=== PATIENT | male | born 1965 | race Caucasian/White ===

== ENCOUNTER 2023-05-21 11:47 | Day surgery (SDC) | payer BC, MEDICAID, SELFPAY ==
[2023-05-21] VITALS (13 sets, daily range): BP systolic 132–163; BP diastolic 79–104; PULSE 102–115; RESP 16–20; TEMP 36.6–36.9; O2SAT 95–99; BMI 39.3
--- NOTE | 2023-05-21 | XR_ITS ---
WS: [id number] Exam: XR elbow RT 2V [id number] Date/Time of Exam: 05/21/2023 12:00 AM Reason For Exam: SUJATA PICS AP and lateral C-arm images of the RIGHT elbow are submitted. Comparison made to prior study 4. Previously noted dislocation appears to have been satisfactorily reduced. No obvious fractures identi fied on the intraoperative images however detail is limited.
--- NOTE | 2023-05-21 13:34 | XR_ITS ---
WS: [id number] Right elbow, 3 views, 05/21/2023 Clinical Data: trauma; significant swelling Comparison: None. Findings: There is a posterior dislocation of the olecranon and radial head from the distal right humerus. Ther e is soft tissue swelling surrounding the dislocation. No fractures are seen. Impression: Posterior dislocation of the olecranon and radial head from the distal right humerus.
--- NOTE | 2023-05-21 13:34 | W.ED.UPPEXIN ---
Documented by User: REBECCA Aviles 05/21/23 15:58 HPI - Extremity Injury (Upper) General: Chief Complaint: Extremity Injury, Upper Stated Complaint: right arm pain Time Seen by Provider: 05/21/23 12:14 Source: patient Mode of arrival: ambulatory Limitations: no limitations History of Present Illness: Patient is a nice 58-year-old male who presents to ED today with complaint of an injury to his right arm that he sustained 2 days ago after falling from a 7 foot ladder. Patient states he did notice pain right away but states it has significantly worsened over the past 48 hours and he has noticed significant swelling and ecchymosis to the right elbow and forearm. He denies any other injury sustained during the fall. MD complaint: injury to: right, elbow and forearm Onset (ago): day(s) Other Extremity Injury: Right: elbow Other injuries: none Place: home Severity: severe Relieving factors: immobilization Exacerbating factors: movement of extremity Context: fall and direct blow Associated symptoms: Reports no associated symptoms Review of Systems Card: Denies: chest pain Resp: Denies: dyspnea Musc: Reports: extremity pain, extremity swelling (R forearm), joint pain (R elbow) and joint swelling (R elbow) Neuro: Denies: numbness in extremities or sensory changes Physical Exam Const: COMMON NORMALS: patient oriented x3, no limitations, alert and well nourished GENERAL APPEARANCE: cooperative NUTRITIONAL APPEARANCE: obese ORIENTATION/CONSCIOUSNESS: Yes awake, Yes oriented to person, Yes oriented to place and Yes oriented to time Extremity: COMMON NORMALS: capillary refill normal GENERAL: Yes normal exam except as noted RIGHT UPPER EXTREMITY: Yes elbow joint (significant edema throughout elbow joint into forearm) Right elbow: Yes ROM (significantly limited secondary to pain/swelling), Yes neurovascular exam (normal) and Yes other (ecchymosis R volar elbow), Yes lower arm Right lower arm: Yes neurovascular exam (normal) and Yes hand & digits (sensation normal, radial pulse intact, normal flex/ext of wrist) Neuro: COMMON NORMALS: patient oriented x3, no focal motor deficits and no sensory deficits noted SENSORIUM/ORIENTATION: Yes alert, Yes oriented to person, Yes oriented to place and Yes oriented to time Course Consultations: Consultation #1: Dr. Hernandez-will come to ED and evaluate patient and attempt reduction under conscious sedation Vital Signs: Vital signs: Vital Signs Temperature 98.4 F 05/21/23 11:49 Pulse Rate 110 H 05/21/23 15:59 Respiratory Rate 18 05/21/23 15:59 Blood Pressure 163/89 05/21/23 11:49 Pulse Oximetry 97 05/21/23 15:59 Oxygen Delivery Me thod Room Air 05/21/23 15:59 MDM - Extremity Injury (Upper) Medical Decision Making Patient is a 58-year-old male here with a right elbow injury that he sustained 2 days ago after falling off of a ladder. On x-ray he has a posterior dislocation. Dr. Redmond and I attempted reduction here but were unsuccessful. Please see Dr. Redmond's note for conscious sedation and procedure. We contacted armor reconnaissance specialist, Dr. Hernandez who graciously came to the emergency department to attempt reduction. After repeat attempt by Dr. Hernandez decision was made to take patient to the OR. Medical Records I reviewed the patient's medical records. Lab Data Radiology Impressions Elbow X-Ray 05/21/23 15:56 IMPRESSION: Persistent dislocation post reduction attempt. All radiology interpretation(s) finalized by discharge Discharge Plan Discharge Patient Disposition: Admitted As Inpatient Clinical Impression: Dislocation of right elbow Qualifiers: Encounter type: initial encounter Qualified Code(s): S53.104A - Unspecified dislocation of right ulnohumeral joint, initial encounter Condition: Stable Coding Level of Care Code ED Systems Engineer for Chg Fwd Documented by User: Cipriano Redmond DO 05/21/23 16:43 HPI - Extremity Injury (Upper) General: Chief Complaint: Extremity Injury, Upper Stated Complaint: right arm pain Time Seen by Provider: 05/21/23 12:14 Procedures Orthopedic Joint Reduction Joint #1: Time Out Performed: Yes Side: right Joint Reduction Location: elbow Analgesia: procedural sedation Technique used: traction/counter-traction Post-reduction neuro exam: no change Post-reduction vascular: no change Post Reduction X-Ray Obtained: No Patient Tolerated Procedure: well Additional Comments: Initial attempt made by myself with etomidate was unable to reduce adequately. Bleeding largely due to the amount of swelling. Dr. Hernandez was contacted I assisted Dr. Hernandez providing conscious sedation with propofol additionally assisted him manipulating the joint. On the second attempt Dr. Hernandez was able to get it partially reduced but the AP film still shows lateral displacement is not fully appropriately reduced he is planning to take patient to the OR for reduction Procedural Sedation Indication: fracture/dislocation reduction ASA Class: I Preparation: environmental monitoring specialist applied, pulse oximeter, supplemental O2 applied, suction/airway equipment at bedside and IV secured IV Propofol dose (mg): 150 IV Etomidate dose (mg): 10 Patient Tolerated Procedure: well Complications: hypoventilation Interventions: oxygen applied, airway repositioned and assist by BVM Additional Comments: Initial attempt at reduction patient was given 20 mg of etomidate tolerated well recovered but we are not able to get adequate enough relaxation at the joint to reduce. Dr. Hernandez was contacted I provided conscious sedation with 3 50 mg pushes of propofol to achieve greater sedation we are able to get it partially reduced but was still some lateral displacement. Did require brief episodes of [id number] assisted ventilations. Patient recovered well with no further support and no complications. Course Vital Signs: Vital signs: Vital Signs Temperature 98.4 F 05/21/23 11:49 Pulse Rate 110 H 05/21/23 15:59 Respiratory Rate 18 05/21/23 15:59 Blood Pressure 163/89 05/21/23 11:49 Pulse Oximetry 97 05/21/23 15:59 Oxygen Delivery Me thod Room Air 05/21/23 15:59 MDM - Extremity Injury (Upper) Medical Decision Making Patient is a 58-year-old male here with a right elbow injury that he sustained 2 days ago after falling off of a ladder. On x-ray he has a posterior dislocation. Dr. Redmond and I attempted reduction here but were unsuccessful. Please see Dr. Redmond's note for conscious sedation and procedure. We contacted armor reconnaissance specialist, Dr. Hernandez who graciously came to the emergency department to attempt reduction. After repeat attempt by Dr. Hernandez decision was made to take patient to the OR. ' ' Chart reviewed and patient discussed with midlevel. Agree with assessment and plan. Lab Data Radiology Impressions Elbow X-Ray 05/21/23 15:56 IMPRESSION: Persistent dislocation post reduction attempt. Discharge Plan Discharge Patient Disposition: Admitted As Inpatient Clinical Impression: Dislocation of right elbow Qualifiers: Encounter type: initial encounter Qualified Code(s): S53.104A - Unspecified dislocation of right ulnohumeral joint, initial encounter Condition: Stable Coding Level of Care Code ED Systems Engineer for Donal Montoya
[2023-05-21] MEDS: etomidate 2 mg/mL INJ SDV 10 mL 10 MG IVP (14:41)
[2023-05-21] MEDS: ondansetron 2 mg/ML SDV 2 mL 4 MG IVP (14:44)
[2023-05-21] MEDS: morphine 4 mg/mL SDV 1 mL IVP ×2 (14:44→15:21)
[2023-05-21] MEDS: propofol 10 mg/mL SDV 20 mL 50 MG IVP (15:23)
--- NOTE | 2023-05-21 15:56 | XRR_ITS ---
PROCEDURE INFORMATION: Exam: XR Right Elbow Exam date and time: 05/21/2023 3:38 PM Age: 58 years old Clinical indication: Screening exam; Post reduction attempt TECHNIQUE: Imaging protocol: Radiologic exam of the right elbow. Views: 1 or 2 views. COMPARISON: CR XR elbow RT min 3V* [id number] 05/21/2023 1:40 PM FINDINGS: Bones/joints: Persistent dislocation post reduction attempt. Soft tissues: Soft tissue swelling again noted around the elbow. XR/XR elbow RT 2V [id number] IMPRESSION: Persistent dislocation post reduction attempt.
--- NOTE | 2023-05-21 16:04 | P.CONIM_ITS ---
Providers/Reason For Consult Consulting Physician/Specialty*: Boo Hernandez DO/orthopedic surgery Reason for Consult*: Right elbow posterior dislocation Requesting Physician: REBECCA Aviles Dr. Primary Care Provider: GWENDOLYN Samuel History of Present Illness History of Present Illness Mckinley Espinal is a 58 year old male who presents to ED today with complaint of an injury to his right arm that he sustained 2 days ago after falling from a 7 foot ladder. Patient states he did notice pain right away but states it has significantly worsened over the past 48 hours and he has noticed significant swelling and ecchymosis to the right elbow and forearm. He denies any other injury sustained during the fall. x-rays in the ED found to have a posterior dislocation appears to be simple in nature no fractures appreciated. Underwent attempted closed reduction by emergency department unsuccessful orthopedics was consulted for evaluation and treatment recommendations. Patient neurovascularly intact has sensation intact to light touch distally denies any numbness or tingling is able to wiggle fingers distal pulses are palpable Review of Systems General: Reports: 10 or more systems reviewed and unremarkable except in HPI and below Medications/Allergies Home Medications Medication Instructions Recorded Confirmed Last Taken Type ibuprofen 200 mg tablet 600 mg PO Q6H PRN Pain 05/21/23 05/21/23 05/21/23 History lisinopril 10 mg tablet 10 mg PO DAILY 05/21/23 05/21/23 05/21/23 History metoprolol tartrate 25 mg tablet 25 mg PO BID 05/21/23 05/21/23 05/21/23 History Allergies Allergy/AdvReac Type Severity Reaction Status Date / Time No Known Allergies Allergy Verified 05/21/23 11:56 Vitals/I&O/Wt Last Vital Signs Temp 98.4 F 05/21/23 11:49 Pulse 115 H 05/21/23 11:49 Resp 17 05/21/23 15:21 BP 163/89 05/21/23 11:49 Pulse Ox 97 05/21/23 15:21 O2 Del Method Room Air 05/21/23 11:49 Weight last 48 hrs Weight 290 lb Physical Exam Narrative: Orthopedic examination right upper extremity: Examination of right upper extremity demonstrates patient has deformity of the right elbow consistent with a posterior dislocation. Swelling and ecchymosis noted about the right elbow. He is able to perform cardinal hand movements of AIN/PIN/radial/ulnar/median nerves intact. Sensations intact light touch of the radial/ulnar/median nerve distribution distal pulses are palpable hand warm well-perfused brisk capillary refill less than 2 seconds. Unable to assess range of motion secondary to pain and dislocation Data Xray Ortho: My impression: X-rays of the elbow reviewed personally interpreted myself demonstrating posterior dislocation of the right elbow. No apparent fractures are noted Radiologist's impression: Impression: Posterior dislocation of the olecranon and radial head from the distal right humerus. A&P Assessment and plan (1) Dislocation of right elbow: Qualifiers: Encounter type: initial encounter Qualified Code(s): S53.104A - U nspecified dislocation of right ulnohumeral joint, initial encounter Plan Attempted closed reduction by the emergency department X-rays reviewed Procedure in detail attempted additional closed reduction by myself with orthopedics and unsuccessful as patient unable to relax as well as unable to get deep enough of sleep as well as an concentric reduction. At this point in time would recommend taking patient to the OR emergently for right elbow closed reduction and long-arm splint application. Patient understands agrees with current plan. Questions answered Procedure in detail: (Attempted closed reduction of right elbow) Patient had hematoma block performed of 10 cc of 1% lidocaine at the anconeus soft spot with appropriate aspiration of hematoma as well as injection this will be for pain control as well as hopefully to distend the joint capsule. Patient then underwent conscious sedation emergency department per the emergency department team received max amount of sedation still has significant guarding secondary to pain attempt was made and had a small palpable clunk but this had residual recurrent dislocation. Patient was then allowed to wake up from conscious sedation. Plan will be to take to the OR emergently for full anesthetic with hopefully paralytics to relax his muscles as this has been out for over 2 days in hopes to obtain a concentric reduction and placed in a long- arm splint. At this point in time he understands and agrees with current plan. All questions answered. He does understand I am not a elbow specialist and at this point in time I will only attempt a closed reduction which I do feel should be successful once his muscles are appropriately relaxed feel this is much more challenging given that he is been out for over 2 days. If this is unsuccessful I would forego creating an open procedure and attempt to reduce this as this should be performed by a elbow specialist for his definitive treatment. He understands and agrees with current plan. All questions answered. Coding Level of Care Code Acute Code for Chg Fwd Diagnoses Dislocation of right elbow S53.104A Encounter type: initial encounter Time Spent (min) 50
--- NOTE | 2023-05-21 16:13 | W.PM.OPSUD ---
Surgery/Procedure H&P Update DATE OF PROCEDURE: May 21, 2023 DATE H&P PERFORMED: 05/21/23 H&P UPDATE INFORMATION: I have reviewed H&P completed within last 30 days, I have examined patient prior to procedure and No changes to prior documentation PREOP DIAGNOSIS: Right elbow dislocation PRIMARY INDICATION FOR PROCEDURE: Right elbow dislocation PLANNED PROCEDURE: Operation Date: 05/21/23 16:30 Proposed Procedures p Closed Reduction Upper Extremity(Right) - Boo Hernandez DO
[2023-05-21] MEDS: propofol 10 mg/mL SDV 20 mL 100 MG IVP (16:35)
--- NOTE | 2023-05-21 16:42 | ANES.PREANE2 ---
Pre-Anesthetic Assessment Height/Weight: Height 1.83 m Weight 131.542 kg Temp Pulse Resp BP Pulse Ox O2 Del Method 98.4 F 110 H 18 163/89 97 Room Air 05/21/23 11:49 05/21/23 15:59 05/21/23 15:59 05/21/23 11:49 05/21/23 15:59 05/21/23 15:59 Preop Diagnosis: Right elbow dislocation Operation Date: 05/21/23 16:30 Proposed Procedures p Closed Reduction Upper Extremity(Right) - Boo Hernandez, Familial anesthetic complications: none Was Beta Joel taken within 24 hours: Yes Was Clonidine taken within 24 hours: N/A Last intake: Intake Last Liquid Date 05/21/23 Last Liquid Time 12:00 Last Solid Date 05/20/23 Last Solid Time 18:00 Last Intake: 08:00 Social Alcohol (2 shots this AM for pain. drinks occasionally ) and Tobacco (chews- last at 0800) Exam alert and oriented x 3 Airway Submandibular: within normal limits Cervical ROM: within normal limits Mallampati: Class III Dentition: full History/ROS No significant history except as noted Pulmonary Asthma CV/HEM Hypertension None reported Hepatic None reported GI None reported Metabolic Hyperlipidemia and Morbid Obesity Musc/skel Lower Back Pain Neuropsych None reported Anesthetic Plan ASA status: 3 Anesthesia: Anesthesia Evaluation and General Risk of > 500 ml blood loss (7ml/kg in children): No Medications/Allergies Home Medications Medication Instructions Recorded Confirmed Last Taken Type ibuprofen 200 mg tablet 600 mg PO Q6H PRN Pain 05/21/23 05/21/23 05/21/23 History lisinopril 10 mg tablet 10 mg PO DAILY 05/21/23 05/21/23 05/21/23 History metoprolol tartrate 25 mg tablet 25 mg PO BID 05/21/23 05/21/23 05/21/23 History Allergies Allergy/AdvReac Type Severity Reaction Status Date / Time No Known Allergies Allergy Verified 05/21/23 11:56 Data Anesthesia Cardiac Studies: No Data to Display
[2023-05-21] MEDS: sodium chloride 0.9% 1,000 ML 30 ML (16:50)
--- NOTE | 2023-05-21 17:47 | W.PM.BPON ---
Date of Procedure: 05/21/2023 Surgeon: Boo Hernandez DO Briquetting Machine Operator(s): None Procedure(s) performed: Right elbow closed reduction Right elbow long-arm splint application Findings of the procedure(s): Patient is found to have a right elbow dislocation appears to be simple in nature no apparent radiographic fractures were noted. He had 2 attempts in the emergency department which were unsuccessful. He was subsequently taken back to the OR for full general anesthetic and paralytic to allow the muscles to relax as this is been out for 2 days. Once his muscles relaxed x-rays were then subsequently taken and he was found to have a posterior dislocation as well as medial translation with the olecranon caught along the trochlea. Manipulation was performed and reduction was achieved he was then subsequently splinted at 90 degrees with reduction maintained. It was noted after the initial reduction he was taken through range of motion and still had noticeable instability beyond 45 degrees. He was flexed at 90 and splinted in this position as this was stable and located and concentric reduction noted. He was then awakened from anesthesia taken to PACU in stable condition and a posterior long-arm splint and a sling. Will be discharged home from PACU and would recommend referral to elbow specialist in [place]. Estimated blood loss: 0 Specimen(s) removed: [None] Post-operative diagnosis: Right elbow dislocation
--- NOTE | 2023-05-21 18:02 | PM.OP ---
Operative Report Date of procedure: May 21, 2023 Pre-op diagnosis: Right elbow dislocation Post-op diagnosis: Right elbow dislocation of ulnohumeral and radiocapitellar joint Procedure done: Right elbow closed reduction Right elbow long-arm splint application Surgeon: Boo Hernandez DO Anesthesia: General Estimated blood loss: 0 IV fluids: 500 mL Complications: None Findings: See operative report narrative Condition: stable Disposition: same day Brief History: Patient is a 58-year-old gentleman who sustained a fall off a ladder landing on his right elbow had pain injury and this happened 2 days ago. Presented to the emergency department today just for evaluation thought he just sprained his elbow. Found to have a posterior elbow dislocation had significant swelling but was neurovascular intact seen evaluate by the emergency department attempted reduction was performed by the ER and unsuccessful orthopedics was consulted. On my evaluation he had a posterior dislocation of the right elbow he underwent conscious sedation in the emergency department from attempted reduction by myself in the ER. Unfortunately given the duration of this already being out as well as he could not tolerate any more conscious sedation without airway protection this was an unsuccessful attempt as he did have considerable muscle spasming. As result he was taken back and recommended to go to the OR emergently for general anesthetic with paralytics to help relax his muscle to allow for a closed reduction and long-arm cast application. He understands the ins and outs procedure risk benefits complication alternatives of surgery and through shared decision make elects proceed with surgical intervention all questions have been answered at this time. He understands risk of surgery include not limited to make a better make it worse, possible fracture, persistent pain, elbow dysfunction. Understanding risk of surgery elects to proceed all questions answered at this time. Procedure: Patient seen evaluate in the preoperative holding area. Consent was reviewed and signed with patient correct extremity was then marked. Patient then was seen evaluate by anesthesia once cleared for surgery was taken back to the operative suite he was placed on the flattop Avery table in supine position all bony prominences well-padded patient appropriate secured bed. Patient then subsequent underwent anesthesia per the anesthesia department was properly anesthetized final timeout was performed. Sling was then subsequently taken off countertraction was applied into the axilla utilizing a hospital bed sheet. While this was held I then utilized downward axial inline traction as well as slow extension to initially disengage the coronoid and then subsequently flexion there was subtle subluxation noted mini C-arm was used to identify patient's still had a noticeable medial dislocation with the olecranon perched on the trochlea I subsequently created a valgus maneuver translating the distal humerus medially as well as pulling inline traction and utilizing my thumb pushing laterally on the olecranon this subsequently had a palpable clunk and reduction of the ulnohumeral joint as well as then with supination and flexion had reduction of the radiocapitellar joint. This was found and taken through range of motion and still had noticeable instability when I went past 45 degrees of flexion achieving more extension there was subluxation that would continually occur as well as loss of radiocapitellar alignment with pronation supination found at 90 degrees to be stable as well as a neutral wrist alignment as a result he was splinted in this and confirmatory mini C arm fluoroscopic images were then taken confirming in the splint he was stable with a concentric located ulnohumeral and radiocapitellar joint he was then subsequently placed and allow the splint to cure as well as sling applied. He was then awakened from anesthesia and taken to PACU in stable condition. Disposition: Patient taken to PACU in stable condition recovering well sling and posterior long-arm splint on in place keeping the wrist in neutral position. Will receive appropriate discharge instructions as well as pain medication. At this point in time would recommend patient follow-up with a autism motor specialist and we will coordinate with our hospital about sending a referral out to an outside facility for autism motor specialist and elbow evaluation given patient had inherent instability intraoperatively even after reduction. Patient was updated and agrees with current plan. All questions answered. Friend of patient was also updated understands agrees with current plan.
[2023-05-21] MEDS: HYDROcodone-acetaminophen 7.5-325 mg Tablet 1 TAB PO (18:15)
--- NOTE | 2023-05-21 18:15 | ANE.PACU2 ---
Inpatient post-anesthesia follow up: Airway intact: Yes Vital signs: Temperature 97.8 F Pulse Rate 113 Respiratory Rate 20 Blood Pressure 142/100 Pulse Oximetry 96 Oxygen Delivery Me thod Room Air Oxygen Flow Rate Fraction of Inspir ed Oxygen Hydration adequate: Yes Nausea and vomiting: No Pain level: 1 Mental status: Baseline
== END 2023-05-21 19:35 | disposition home or self-care (01) ==
LOC: ER 15:55 → OR 16:34
PROVIDERS: Emergency Provider Physician Assistant; PCP Nurse Practitioner; Visit Provider Student in an Organized Health Care Education/Training Program
PROC: (CPT 24605; principal; 2023-05-21 16:30)
DX: S53.104A Unspecified dislocation of right ulnohumeral joint, initial encounter (principal); W11.XXXA Fall on and from ladder, initial encounter; Y99.9 Unspecified external cause status
CPT/HCPCS: 24605; 24600; 73070; 73080; 76000; J1100; J2270; J2405; J2704; J3010; J3490; J7030